=== PATIENT | male | born 1945 | race Hispanic/Latino ===

== ENCOUNTER → 2022-02-14 | Outpatient (CLI) | payer OTHER ==
[~2022-02-14] MED LIST: IOPAMIDOL 370 MG/ML 100 ML INFUS..BTL INJ ONE; SODIUM CHLORIDE 0.9% 100 ML ONE
[2022-02-14 12:30] LABS: CREATININE, SERUM 0.94 mg/dL (0.72-1.25)
== END ==
LOC: CT 11:37
PROVIDERS: ATTEND Internal Medicine
DX: I72.0 Aneurysm of carotid artery (principal)
CPT/HCPCS: 36415; 70498; 82565; 84520; J7050; Q9967